=== PATIENT | male | born 1975 ===

== ENCOUNTER → 2019-02-04 | Outpatient (REF) | payer SELFPAY ==
[2019-02-06 21:02] LABS: API SURVEY SYPHILIS SEROL. NONREACTIVE (NONREACTIVE)
[2019-02-08 08:58] LABS: API SURVEY SYPHILIS SEROL. NONREACTIVE (NONREACTIVE); API SURVEY SYPHILIS SEROL. REACTIVE (NONREACTIVE)
[2019-02-13 07:52] LABS: API SURVEY SYPHILIS SEROL. REACTIVE (NONREACTIVE)
== END | disposition home or self-care (01) ==
LOC: LABSURVEY 13:59
PROVIDERS: Visit Provider Pathology Anatomic Pathology & Clinical Pathology
DX: Z00.00 Encounter for general adult medical examination without abnormal findings (principal)